=== PATIENT | male | born 1965 | race Caucasian/White ===

== ENCOUNTER 2020-08-13 13:40 | Observation (INO) ==
[2020-08-13 15:32] LABS: Basophils % 0.2 % (0.0-0.8); Eosinophils % 0.2 % (0.00-10.9); Hematocrit 45.8 VOL% (42.0-52.0); Hemoglobin 16.4 GM/DL (14.0-18.0); Immature Granulocytes % 0.4 %; Immature Granulocytes Absolute 0.05 #; Lymphocytes # 0.9 10*3/uL (1.4-4.0); Lymphocytes % 7.6 % (21.2-54.2); Mean Corpuscular HGB Conc 35.8 GM/DL (32-36); Mean Corpuscular Volume 88.1 FL (87-102); Mean Platelet Volume 11.5 FL (9.6-12.0); Monocytes % 8.8 % (1.7-12.7); Neutrophils % 82.8 % (38.7-73.9); Platelet Count 244 T/CUMM (130-400); Red Cell Distribution Width 11.6 % (9.3-17.3); White Blood Count 11.4 T/CUMM (4-12)
[2020-08-13] MEDS ORDERED: DEXAMETHASONE 4 MG/1 ML VIAL IV STA (16:56)
[2020-08-13] MEDS ORDERED: cefTRIAXone 1,000 MG in SODIUM CHLORIDE 0.9% 100 ML IV STA (16:56)
[2020-08-13 17:06] LABS: Albumin 2.7 G/DL (3.4-5.0); Bilirubin,Total 1.1 MG/DL (0.2-1.0); Calcium 8.2 MG/DL (8.5-10.1); Ferritin 616.8 ng/ml (26-388); Osmolality,Calculated 268.1 MOS/KG (273-304); Total Protein 7.9 G/DL (6.4-8.3)
[2020-08-13] MEDS ORDERED: ONDANSETRON 4 MG/2 ML VIAL IV PRN (17:32)
[2020-08-13] MEDS ORDERED: DEXTROSE 50% 25 GM/50 ML VIAL IV PRN (17:32)
[2020-08-13] MEDS ORDERED: GLUCAGON 1 MG VIAL IM PRN (17:32)
[2020-08-13] MEDS ORDERED: ACETAMINOPHEN 325 MG TABLET PO PRN (17:32)
[2020-08-13] MEDS ORDERED: AZITHROMYCIN 250 MG TABLET PO STA (18:03)
[2020-08-13] MEDS: ENOXAPARIN 40 MG/0.4 ML SYRINGE SUBCUT SCH (21:20)
[2020-08-14 04:47] LABS: Basophils % 0.3 % (0.0-0.8); Eosinophils % 0.4 % (0.00-10.9); Hematocrit 40.8 VOL% (42.0-52.0); Hemoglobin 14.4 GM/DL (14.0-18.0); Immature Granulocytes % 0.4 %; Immature Granulocytes Absolute 0.04 #; Lymphocytes # 1.6 10*3/uL (1.4-4.0); Lymphocytes % 17.3 % (21.2-54.2); Mean Corpuscular HGB Conc 35.3 GM/DL (32-36); Mean Corpuscular Volume 89.3 FL (87-102); Mean Platelet Volume 11.6 FL (9.6-12.0); Monocytes % 14.6 % (1.7-12.7); Platelet Count 249 T/CUMM (130-400); Red Blood Count 4.57 MC/CUMM (3.8-5.5); Red Cell Distribution Width 11.7 % (9.3-17.3); White Blood Count 9.1 T/CUMM (4-12)
[2020-08-14 05:02] LABS: Calcium 8.4 MG/DL (8.5-10.1); Ferritin 558.7 ng/ml (26-388); Osmolality,Calculated 268.1 MOS/KG (273-304)
[2020-08-14 06:14] LABS: Sedimentation Rate-Westergren 55 MM/HR (0-20)
[2020-08-14] MEDS: PANTOPRAZOLE 40 MG TABLET PO SCH (09:14)
[2020-08-14] MEDS: ZINC SULFATE 220 MG CAPSULE PO SCH (09:15)
[2020-08-14] MEDS: ASCORBIC ACID 500 MG TABLET PO SCH (09:15)
[2020-08-14] MEDS: DEXAMETHASONE 10 MG/1 ML VIAL IV SCH (09:15)
[2020-08-14] MEDS: cefTRIAXone 1,000 MG in SYRINGE 1 EACH IV SCH (09:17)
[2020-08-14] MEDS: ENOXAPARIN 40 MG/0.4 ML SYRINGE SUBCUT SCH (21:18)
[2020-08-15 05:11] LABS: Calcium 9.3 MG/DL (8.5-10.1); Ferritin 758.8 ng/ml (26-388); Osmolality,Calculated 269.2 MOS/KG (273-304)
[2020-08-15 05:25] LABS: Basophils % 0.1 % (0.0-0.8); Hematocrit 42.2 VOL% (42.0-52.0); Hemoglobin 14.6 GM/DL (14.0-18.0); Immature Granulocytes % 0.5 %; Immature Granulocytes Absolute 0.05 #; Lymphocytes # 0.9 10*3/uL (1.4-4.0); Lymphocytes % 8.2 % (21.2-54.2); Mean Corpuscular HGB Conc 34.6 GM/DL (32-36); Mean Corpuscular Volume 90.4 FL (87-102); Mean Platelet Volume 11.7 FL (9.6-12.0); Monocytes % 5.3 % (1.7-12.7); Neutrophils % 85.9 % (38.7-73.9); Platelet Count 314 T/CUMM (130-400); Red Blood Count 4.67 MC/CUMM (3.8-5.5); Red Cell Distribution Width 11.5 % (9.3-17.3); White Blood Count 10.9 T/CUMM (4-12)
[2020-08-15 07:13] LABS: Sedimentation Rate-Westergren 59 MM/HR (0-20)
[2020-08-15] MEDS: cefTRIAXone 1,000 MG in SYRINGE 1 EACH IV SCH (08:43)
[2020-08-15] MEDS: ASCORBIC ACID 500 MG TABLET PO SCH (08:43)
[2020-08-15] MEDS: PANTOPRAZOLE 40 MG TABLET PO SCH (08:44)
[2020-08-15] MEDS: DEXAMETHASONE 10 MG/1 ML VIAL IV SCH (08:44)
[2020-08-15] MEDS: ZINC SULFATE 220 MG CAPSULE PO SCH (08:44)
[2020-08-15 12:05] VITALS: BP 137/86
== END 2020-08-15 12:25 | disposition home or self-care (01) ==
LOC: N.ED 13:40 → N.EDINP 13:40 → N.2E 08-14 15:57
PROVIDERS: ADMIT Family Medicine; ATTEND Family Medicine